=== PATIENT | male | born 1960 | race Caucasian/White ===

== ENCOUNTER 2024-08-04 22:43 | Emergency (ER) | payer MEDICARE, SELFPAY ==
[2024-08-04 22:59] VITALS: BP 132/65; PULSE 62; RESP 16; TEMP 36.9; O2SAT 98; BMI 25.8
--- NOTE | 2024-08-04 23:20 | ED_ITS ---
Discharge Plan Disposition Patient Disposition: Home, Self-Care Condition: Good Prescriptions Prescriptions: New doxycycline hyclate 100 mg capsule 100 mg PO BID 10 Days Qty: 20 0RF Referrals Follow up/Referrals: Provider,Referral, MD [Primary Care Provider] - See instructions Activity Restrictions/Add. Instructions Additional Instructions/Restrictions: You were evaluated in the ER and are appropriate for discharge at this time. Take the prescribed doxycycline as directed, do not skip doses, do not stop taking it early. Drink a full glass of water and stay sitting upright for 30 minutes after taking this medication. Keep the wound clean and dry. Shower/bathe like normal. Check yourself thoroughly for ticks anytime you have been outside in tall grass or in the [place]. Follow-up with your primary care doctor for reevaluation in a few days. Return to the ER with any new, worsening, or otherwise concerning symptoms. Clinical Impressions Clinical Impression: Cellulitis, Tick bite, Embedded tick of left shoulder Instructions Patient Instructions: DI for Skin Abscess Print Language Print Language: Serbian Discharge ED Provider: Javier Gillis General Adult HPI General Chief complaint: Skin/Abscess/Foreign Body Stated complaint: tick under your skin Time Seen by Provider: 08/04/24 23:00 Mode of Arrival: Ambulatory Source of Information: Patient Description of Symptoms (Recalled from ER Triage Doc. by RN): Pt to ED with c/o tick bite to left upper back History of Present Illness HPI narrative: 64-year-old male who reports being a type II diabetic on metformin presents to the ER with complaints of tick bite to the left shoulder. Patient reports he noticed it today, unsure how long the tick has been there. He states his tried to kill it with peroxide and also tried to pull it unsuccessfully. He states it is uncomfortable when touched. He states takes like to in bed in me . He states in the past he has had illness from take including fever but does not have fever associated with this tick bite. He believes he had another tick bite earlier this week above this 1. Other than redness at the site he reports no other rash, body aches, fevers, chills, or any other associated symptoms. Related Data Previous Rx's ?Medication ?Instructions ?Recorded doxycycline hyclate 100 mg capsule 100 mg PO BID 10 days #20 caps 08/04/24 Allergies Allergy/AdvReac Type Severity Reaction Status Date / Time cephalexin Allergy Mild Verified 08/04/24 23:18 [facility] Disclaimer: The information contained in this section may have been updated after the patient was seen, as this information can be updated by other users. Social History Smoking Status: Current some day smoker alcohol intake: never current occupational status: other Travel in the last 8 weeks: None ROS Obtained: Yes Systems reviewed as appropriate & no additional complaints except as documented per HPI Physical Exam General General appearance: alert and in no apparent distress Head Head exam: atraumatic and normocephalic Eye Eye exam: Present PERRL and EOMI ENT ENT exam: Present mucous membranes moist Neck Neck exam: Present normal inspection and full ROM Chest Chest inspection: Present symmetric chest wall rise Respiratory Respiratory exam: Absent respiratory distress or stridor Cardiovascular Cardiovascular exam: Present regular rate and normal rhythm Extremities Exam Extremities exam: Present full ROM Back Exam Back 1 view image: 2 1. embedded tick with 2cm surrounding erythema and induration 2. 3cm area of induration and erythema with small scab in the center. no tick. Neurological Exam Neurological exam: Present alert, oriented X3 and normal gait Psychiatric Psychiatric exam: Present normal affect and normal mood Skin Skin exam: Present warm and dry Medical Decision Making Medical Records Screening: Per USPSTF and CDC recommendations, given the prevalence of disease in our region, it is our hospital?s policy to screen for HIV and viral Hepatitis for all patients aged 18 and over and those with ongoing risk factors. Nba Inquiry Pt receiving controlled substance: No Vital Signs: 08/04/24 22:59 Temperature 98.5 F Temperature Source Oral Pulse Rate [Left Radial] 62 Respiratory Rate 16 Blood Pressure [Right Arm] 132/65 Blood Pressure Mean [Right Arm] 87 Blood Pressure Source [Right Arm] Automatic Cuff Blood Pressure Position [Right Arm] Sitting 02 Sat by Pulse Oximetry 98 Oxygen Delivery Method Room Air Orders (Tests/Meds): ED MEDICATIONS Discontinued Medications Generic Name Dose Route Start Last Admin Trade Name Freq PRN Reason Stop Dose Admin Doxycycline Hyclate 100 mg 08/04/24 23:17 Doxycycline Hycl 100 Mg Tablet PO 08/04/24 23:18 ONCE ONE Medical Decision Narrative: In summary, this 64-year-old male with comorbidities described in the HPI which may not be at goal therapy presents to the emergency department today with tick bite. On initial evaluation patient is hemodynamically stable, afebrile, overall well-appearing. Patient has very small, embedded tick on the left shoulder/back near the axilla as indicated in the back exam. Tick does not appear to be alive but is embedded. There is surrounding erythema and induration. There is also an area of erythema and induration just superior to this the patient believes was a tick bite earlier this week. No other rash or abnormalities identified on exam. Differential diagnosis includes but is not limited to tick bite, cellulitis, I considered abscess but there is no associated fluctuance, considered possibility of tickborne illness though I do not appreciate overt evidence of these at this time. I do not believe the patient requires labs or imaging. Tick was removed, see procedure note for details. Patient received doxycycline for treatment of associated cellulitis as well as any potential tickborne illness. He is being prescribed doxycycline for continued management since there is already evidence of soft tissue infection. Doxycycline also covers for tickborne illness so this should be adequate for treatment of these if present. Patient was given instructions on symptomatic management, wound care, antibiotic administration, follow up instructions, and return precautions for the emergency department. Patient indicated understanding and was discharged in stable condition. Procedures Risk/Benefits of Procedure(s) Were Explained: Yes (verbal consent provided by pt) Foreign Body Removal Time Out Performed: Yes Site: left Description of foreign body: insect (small embedded tick on L shoulder near axilla) Sedation/Analgesia: none Technique: removal with forceps (curved foreceps for initial removal, remaining piece was lifted out with tip of 18ga needle) Confirmed by:: direct visualization and palpation Complications: none Post-procedure exam: awake, alert Neurovascular: no change from pre-procedure (normal, intact, no complications, tolerated well) Critical Care Critical Care Time Critical Care Time: No
[2024-08-04] MEDS: DOXYCYCLINE HYCL 100 MG TABLET PO (23:32)
[2024-08-04 23:58] VITALS: BP 132/65; PULSE 62; RESP 16; TEMP 36.9; O2SAT 98
== END 2024-08-04 23:45 | disposition home or self-care (01) ==
PROVIDERS: Emergency Provider Student in an Organized Health Care Education/Training Program
DX: L03.114 Cellulitis of left upper limb (principal); S40.261A Insect bite (nonvenomous) of right shoulder, initial encounter; W57.XXXA Bitten or stung by nonvenomous insect and other nonvenomous arthropods, initial encounter
CPT/HCPCS: 99283

== ENCOUNTER 2024-09-09 14:44 | Emergency (ER) | payer MEDICARE, SELFPAY ==
[2024-09-09 15:02] VITALS: BP 105/51; PULSE 59; RESP 16; TEMP 36.8; O2SAT 97; BMI 25.8
--- OUTSIDE RECORDS SUMMARY | 2024-09-09 15:08 | XMS_ITS | Continuity of Care Document ---
Author Organization [facility] [place] Address [address] [place] [address] [facility] [place] [address] Support Name Relationship Address Phone Basim Bain MD Personal Relationship [facility] [place] [address] Nanci Lopez Personal Relationship Unknown Yumiko jon Care Teams Patient Care Team Team Status: Active Member Role Status Dates Nanci Lopez Primary Care Provider Active Visit Care Team Team Status: Inactive Member Role Status Dates Basim Bain MD Attending Provider Active Start: June 08, 2024 End: June 08, 2024 Nanci Lopez Primary Care Provider Active Start: June 08, 2024 End: June 08, 2024 Patient Care Team Team Status: Inactive Member Role Status Dates Basim Bain MD Attending Provider Active Start: August 31, 2024 End: August 31, 2024 Nanci Lopez Primary Care Provider Active Start: August 31, 2024 End: August 31, 2024 Chief Complaint and Reason for Visit Chief Complaint Admit Date followup June 08, 2024 10:40am Office visit August 31, 2024 9:31a m Reason for Visit Admit Date Peripheral polyneuropathy June 08, 2024 10:40am Peripheral polyneuropathy August 31, 2024 9:31am Allergies, Adverse Reactions, Alerts Allergen Type Severity Reaction Last Updated Verified Status cephalexin Allergy Unknown Rash August 31, 2024 10:15am Yes Active Social History Smoking Status Status Start Date End Date Date of Observa tion Ex-smoker (finding) April 20, 2024 3:33pm Observation Status Observation Response Date of Response substance use type does not use March 4:33pm alcohol intake never April 20, 2 024 4:33pm Sex Assigned At Male June Gender Identity Cisgender/Not transgender (findi ng) May 31, 2021 Cisgender/Not transgender (findi ng) May 31, 2021 Cisgender/Not transgender (findi ng) May 31, 2021 Cisgender/Not transgender (findi ng) May 31, 2021 Cisgender/Not transgender (findi ng) May 31, 2021 Family History Relationship Condition Age at Onset Recorded Date/T sumanth mother Diabetes mellitus Unknown father Malignant neoplasm of lung Unknown Problems Active Problems Medical Problem Onset Date Status Peripheral polyneuropathy Unknown Active Paresthesia of lower lip Unknown Active Vitamin B12 deficiency Unknown Active Hypoglycemia due to type 2 diabetes mellitus Unk nown Active History of CVA (cerebrovascular accident) Unknow n Active Hypertension Unknown Active Inactive/Resolved Problems Medical Problem Onset Date Status Acute kidney injury Unknown Resolved Acute dehydration Unknown Resolved Hyperosmolar hyperglycemic state (HHS) Unknown Resolved Paresthesia Unknown Resolved Shoulder pain Unknown Resolved Labile essential hypertension Unknown Re solved Bradycardia Unknown Resolved Transient ischemic attack Unknown Resolv ed Hyponatremia Unknown Resolved Near syncope Unknown Resolved Acute metabolic encephalopathy Unknown R esolved BMI 28.0-28.9,adult Unknown Resolved Skin nodule Unknown Resolved Acute ischemic stroke Unknown Resolved Transient cerebral ischemia Unknown Reso lved Cerebrovascular accident Unknown Resolve d Hyperkalemia Unknown Resolved Medications Medication Status Dose Units Route Directions Qty Days St art Date Stop Date End Date Instructions Adherence Hydrochloro thiazide 25 mg tablet Active 12.5 MG PO DAILY 2023 1:00am Blood-Gluco se Sensor (Dexcom G6 Sensor) device Active EACH MISC 2023 1:00am Blood-Gluco se Transmitter (Dexcom G6 Transmitter ) device Active EACH MISC As Directed 2023 1:00am Empaglifloz in (Empagliflo zin 10 Mg Tablet) 10 mg tablet Discont inued 10 MG PO Every Morning 2023 1:00am 2023 2:23a m Dextrose (Glucose Gel) 40 % gel Active 10 GM PO Q15M as needed for hypoglycemi a 112. 5 2023 1:00am until symptoms of low blood sugar are controlled Pantoprazol e (Protonix) 40 mg Tablet,Hermila yed Release (Dr/Ec) Discont inued 40 MG PO TWICE A DAY [facility] er 2019 1:00am Apr 2023 2:12a m Atorvastati n 40 mg Tablet Discont inued 40 MG PO once daily at bedtime 30 [facility] er 2019 1:00am Apr 2020 2:46p m Clopidogrel 75 mg Tablet Discont inued 75 MG PO DAILY 30 Dece er 2019 1:00am Apr 2020 2:46p m Clonidine Hcl 0.1 mg tablet Discont inued 0.1 MG PO DAILY as needed for SBP > 160 or DBP > 100 2023 1:00am Apr 2023 2:11a m Hydrochloro thiazide 25 mg tablet Discont inued 12.5 MG PO DAILY 2023 1:00am Apr 2023 9:59a m Amlodipine 2.5 mg tablet Active 2.5 MG PO DAILY 2023 1:00am On Hold: Hold until the top number of your blood pressure reaches 130 Amoxicillin 875 mg tablet Discont inued 875 MG PO EVERY 12 HOURS 2023 1:00am Apr 2023 9:59a m Albuterol Sulfate 90 mcg/actuati on HFA aerosol inhaler Discont inued 2 PUFF INH Q4H as needed for shortness of breath or wheezing 2023 1:00am Apr 2023 2:11a m Insulin Glargine 100 unit/mL Solution Active 28 UNIT SUBCUT DAILY 2023 1:00am Insulin Regular Human (Humulin R Regular U-100 Insuln) 100 unit/mL Solution Discont inued 7 UNIT SUBCUT THREE TIMES DAILY WITH MEALS 2023 1:00am Apr 2023 2:10a m Metformin 500 mg Tablet Active 500 MG PO TWICE DAILY WITH MEALS 2023 1:00am Ibuprofen 600 mg tablet Discont inued 600 MG PO TWICE A DAY as needed for pain, mild July 22, 2022 12:00a m Apr 2023 9:59a m Promethazin e 25 mg tablet Discont inued 25 MG PO Q6H as needed for nausea and vomiting July 22, 2022 12:00a m Aprua 2023 7:58a m Aspirin (Adult Aspirin Regimen) 81 mg tablet,hermila yed release (DR/EC) Active 81 MG PO DAILY 30 July 24, 2022 12:00a m Empaglifloz in (Jardiance) 10 mg tablet Discont inued 10 MG PO DAILY July 08, 2023 12:00a m Insulin Glargine (Lantus Solostar U-100 Insulin) 100 unit/mL (3 mL) insulin pen Discont inued UNIT SUBCUT July 08, 2023 12:00a m Fluticasone Propionate 50 mcg/actuati on spray,suspe nsion Discont inued SPRAY IN July 08, 2023 12:00a m Clonidine Hcl 0.1 mg tablet Discont inued 0.1 MG PO DAILY July 08, 2023 12:00a m Atorvastati n 40 mg tablet Discont inued 40 MG PO DAILY July 08, 2023 12:00a m Lisinopril 20 mg tablet Discont inued 20 MG PO TWICE A DAY July 08, 2023 12:00a m Pantoprazol e 40 mg tablet,hermila yed release (DR/EC) Discont inued 40 MG PO TWICE A DAY July 08, 2023 12:00a m Cyanocobala min (Vitamin B-12) 500 mcg tablet Discont inued 500 MCG PO DAILY 90 90 July 08, 2023 12:00a m Augus t 2023 12:10 pm Cyanocobala min (Vitamin B-12) 500 mcg tablet Active 500 MCG PO DAILY 90 90 December 09, 2023 12:10p m Pregabalin (Lyrica) 75 mg capsule Discont inued 75 MG PO TWICE A DAY 60 2024 1:00am August 23, 2024 12:06 pm Pregabalin (Lyrica) 75 mg capsule Discont inued 75 MG PO TWICE A DAY 60 August 23, 2024 12:05p m August 31, 2024 10:35 am Hydrochloro thiazide 12.5 mg capsule Discont inued 12.5 MG PO DAILY 2020 1:00am 2023 7:59a m Clopidogrel 75 mg tablet Discont inued 75 MG PO DAILY 2020 2:45pm Febru 2021 4:57p m Atorvastati n 40 mg tablet Discont inued 40 MG PO once daily at bedtime 2020 2:46pm Febru migdalia 2021 4:57p m Clopidogrel 75 mg tablet Discont inued 75 MG PO DAILY 30 2021 3:49pm savita 2021 4:01p m Atorvastati n 40 mg tablet Discont inued 40 MG PO once daily at bedtime savita 2021 3:49pm savita 2021 4:01p m Atorvastati n 40 mg tablet Discont inued 40 MG PO once daily at bedtime er 2021 4:01pm Febru migdalia 2022 3:32p m Clopidogrel 75 mg tablet Discont inued 75 MG PO DAILY er 2021 4:01pm Febru migdalia 2022 3:32p m Atorvastati n 40 mg tablet Discont inued 40 MG PO once daily at bedtime ry 2022 3:31pm ry 2023 2:11a m Clopidogrel 75 mg tablet Active 75 MG PO DAILY ry 2022 3:31pm Pregabalin (Lyrica) 75 mg capsule Active 75 MG PO TWICE A DAY August 31, 2024 10:35a m Atorvastati n 40 mg tablet Discont inued 40 MG PO once daily at bedtime 2021 4:56pm Septe er 2021 3:49p m Clopidogrel 75 mg tablet Discont inued 75 MG PO DAILY 2021 4:56pm er 2021 3:49p m Lisinopril 20 mg tablet Discont inued 20 MG PO TWICE A DAY 2021 1:00am 2023 9:59a m Hydrocodone -Acetaminop hen 10-325 mg tablet Discont inued 1 TAB PO EVERY 6 HOURS 2019 12:00a m Aprua 2023 8:47a m Takes scheduled. Not PRN. Aspirin 81 mg Tablet,Hermila yed Release (Dr/Ec) Discont inued 81 MG PO DAILY Novemb er 2019 12:00a m Aprua ry 2020 2:20p m Lisinopril 10 mg Tablet Discont inued 10 MG PO DAILY Novemb er 2019 12:00a m Aprua ry 2020 2:21p m Lisinopril 10 mg tablet Discont inued 20 MG PO DAILY y 2020 2:20pm Febru 2021 3:14p m Vital Signs Vital Reading Result Reference Range Collection Date/Time Heart Rate 59 /min 60-100 June 08, 2024 12:02pm Respiratory rate 18 /min -June 082024 12:02pm Oxygen saturation by Pulse oximetry 98 % 95-100 June 08, 2024 12:02pm BP Systolic 111 mm[Hg] 90-120 June 08, 2024 12:02pm BP Diastolic 72 mm[Hg] 60-80 June 08, 2024 12:02pm Height 68 [in_i] August 31, 2024 10:14am Weight 177.00 [lb_av] August 31 10:14am Body Temperature 98 [degF] 97.6-99.6 August 31, 2 025 10:14am Heart Rate 53 /min 60-100 August 31, 2024 10:14am Respiratory rate 18 /min -August 31, 2 025 10:14am Oxygen saturation by Pulse oximetry 97 % 95-100 August 31, 2024 10:14 am BP Systolic 117 mm[Hg] 90-120 August 31, 2024 10:14am BP Diastolic 71 mm[Hg] 60-80 August 31, 2024 10:14am BMI (Body Mass Index) 26.9 kg/m2 August 312024 10:34am Insurance Providers Guarantor Alan Thompson Address [address] [place] [address] [facility] [address] Contact Info. Home Phone: Payer Policy Id Subscriber's Name Subscriber Id Effectiv e Date Expiration Date [place] MEDICAID [id number] Alan Thompson [id number] MEDICARE A AND B [id number] Alan Thompson [id number] Encounters Encounter Location(s) Arrival/Admit Date Discharge /Depart Date Provider(s) Departed Physician/Prov ider Office Visit -[facility] June 08, 2024 11:40am June 08, 2024 12:23pm Chapo Bain MD Departed Physician/Prov ider Office Visit -[facility] August 31, 2024 9:31am August 31, 2024 10:38am Chapo Bain MD Recent Diagnosis Onset Date Admit Date Peripheral polyneuropathy Unknown Februa 2024 10:40am Peripheral polyneuropathy Unknown August 312024 9:31am Assessments Diagnosis Onset Date Resolution Status Admit Date Peripheral polyneuropathy acute June 08, 2024 10:40am Peripheral polyneuropathy acute August 31, 2024 9:31am Plan of Treatment Author Chapo Mendoza [facility] Auth[facility] June 08, 2024 12:46pm 63-year-old with burning aleksandar n in feet clinical features suggestive of peripheral polyneuropathy small fiber likely secondary diabetes History of vitamin B12 deficiency would get vitamin B12 level Would start the patient on Lyrica 75 mg p.o. b.i.d. Author Chapo Mendoza glenda [facility] Authored August 31, 2024 10:34 am Numbness persisting. 63-year -old with burning pain in feet clinical features suggestive of peripheral polyneuropathy small fiber likely secondary diabetes Would reorder vitamin B12 level Continue Lyrica 75 mg p.o. b.i.d. Future Tests Future scheduled test information is unavailable Pending Tests Test Name Ordered Date Scheduled Date Vitamin B12 August 31, 2024 10:35am 1 Months Future Visits Future appointment information is unavailable Referrals to Other Providers Referral information is unavailable Future Procedures Future procedure information is unavailable Future Medications Future medication information is unavailable Patient Instructions Patient instructions are unavailable History & Physical Note Author Chapo anderson [facility] Note Date/Time August 31, 2024 10:34 am [facility] [place] [facility] [place] [address] [address] Office Visit Report Signed Patient: Alan Thompson MR#: [id number] : 1960 Acct:[id number] Age/Sex: 64 / M ADM Date: 5 Loc: FK.NEURO Attending: Basim Bain M.D. 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 These include:: none of the above TB Risk Factors: None Have you Received a Covid-19 Vaccination: No Received Annual Flu Vaccine this year: No History of depression/psychiatric disorder: No Over the last 2 weeks, how often have you been bothered by any of the following problems? 1. Little interest or pleasure in doing things: not at all 2. Feeling down, depressed, or hopeless: not at all Total score: 0 If score is greater than 2 or hx of depression complete PHQ-9 Depression Screening Results: negative screen PHQ-9 (History of Depression or +Screen) 3. Trouble falling or staying asleep, or sleeping too much: not at all 4. Feeling tired or having little energy: not at all 5. Poor appetite or overeating: not at all 6. Feeling bad about yourself - or that you are a failure or have let yourself and your family down: not at all 7. Trouble concentrating on things, such as reading the newspaper or watching television: not at all 8. Moving or speaking so slowly that other people could have noticed? - Or the opposite - being so fidgety or restless that you have been moving around a lot more than usual: not at all 9. Thoughts that you would be better off or of hurting yourself in some way: not at all Total score: 0 If you checked off any problems, how difficult have these problems made it for you to do your work, take care of things at home, or get along with other people?: not difficult at all Source: Developed by Drs. Maco Neves, Tiana Maloney, Jose Chahal and colleagues, with an educational mimi from [employer]. HARK Intimate Violence Within the last year, have you been humiliated or emotionally abused in other ways by your partner or ex-partner: no Within the last year, have you been afraid of your partner or ex-partner: no Within the last year, have you been kicked, hit, slapped, or otherwise physically hurt by your partner or ex-partner: no Within the last year, have you been raped or forced to have any kind of sexual activity by your partner or ex-partner: no HARK total score: 0 ORT (Opioid Risk Tool) Age (Kenney box if 16-45): No History of Preadolescent Sexual Abuse: No Total Score: 0 Risk Category: Low Risk Urine Drug Screen Indicated: Low=Annually Moderate=Every 6 Months High=Every 3 Months ???Case NEWELL, Case [place]. Predicting aberrant behaviors in Opioid-treated patients: preliminary validation of the Opioid risk too. Pain Med. 2005; 6 (6) :432.??? Do you need a note to return to daycare/school/sports/work: No Admission History Have you been admitted to a hospital in past 30 days?: No Have you been discharged from a hospital in the past 7 days?: No Have you seen a Healthcare Provider in the past 7 days?: No Have you seen a Healthcare Provider in the past 48 hours?: No Nurse's Note Nurse's Note: pt is in office for follow up [facility] Medical History Vitamin B12 deficiency History of CVA (cerebrovascular accident) Transient ischemic attack Hypertension Surgical History History of hernia repair H/O left knee surgery History of cholecystectomy Family History Mother Diabetes Father Lung cancer Social History What is your current living situation: decline to answer Problems where you live: no known problems In the past 12 months, utilities in danger of being shut off: decline to answer In past 12 months, lack of transportation kept you from medical appts, meetings,work, or getting things needed for daily living: Decline to answer Financial difficulty paying for basics: not very hard Past 12 mos, fear food will run out before able to buy more: never true In past 12 months, food didn't last until money to buy more: never true Do you want help finding or keeping work or a job: I do not need or want help Do you want help with school or training: No Do you speak a language other than [place] at home?: No How many days of moderate to strenuous exercise, like a brisk walk, did you do in the last 7 days: 5 How many times in the past 12 months have you had 5 or more drinks in a day (males) or 4 or more drinks in a day (females)? One drink is 12 ounces of beer, 5 ounces of wine, or 1.5 ounces of 80-proof: Never How many times in the past 12 months have you used tobacco products (like cigarettes, cigars, snuff, chew, electronic cigarettes)?: Never How many times in the past year have you used prescription drugs for non-medical reasons?: Never How many times in the past year have you used illegal drugs?: Never Smoking risk assessment performed?: Yes How often does anyone, including family, friends and others, physically hurt you: never How often does anyone, including family, friends and others, insult or talk downto you: never How often does anyone, including family, friends and others, threaten you with harm: never How often does anyone, including family, friends and others, scream or curse at you: never Safety Score: 4 Do you need help with ADLs: I don't need any help Due to a physical, mental, or emotional condition, do you have difficulty doing errands alone such as visiting a doctor's office or shopping: No 1. Little interest or pleasure in doing things: not at all 2. Feeling down, depressed, or hopeless: not at all Mental Health Health-Related Social Need: 0 Feel stressed/tense/nervous/anxious/difficulty sleeping: not at all Life stressors: decline to answer Due to disability, difficulty making decisions: No Gender Identity: Male HPI HPI Comments Details: Patient was seen for follow-up. Patient states that numbness is persisting intermittently especially in the evenings. Exam Neuro General: patient alert, patient awake and patient oriented x3 Cranial Nerves: PERRL, EOM intact bilaterally, no nystagmus, facial strength normal, tongue midline, hearing normal, able to rotate head bilaterally, able toelevate shoulders bilaterally and symmetric palate elevation Cognition: normal cognition Speech: speech normal Gait: normal gait Motor: muscle tone normal throughout and strength 5/5 throughout Sensory Exam: no sensory deficits noted (Decreased for pinprick up to mid ramsey bilateral lower extremities) DTR's: Rt Triceps: 2+, Lt Triceps: 2+, Rt Biceps: 2+, Lt Biceps: 2+, Rt Brachioradialis: 2+, Lt Brachioradialis: 2+, Rt Patellar: 2+, Lt Patellar: 2+, Rt Ankle: 2+ and Lt Ankle: 2+ Plantar Reflexes: Downgoing: bilateral Coordination: [id number] test normal and rapid alternating movement LE normal Quality Reporting Adult ([facility] 138/2/22/69/61/64/165) Depression Screening Results: negative screen Body Mass Index: 26.9 Immunizations ([facility] 147, 117) Annual Influenza Vaccine: No Depression/Bipolar (159/160/161/169/177) Total score: 0 Assessment & Plan Assessment & Plan (1) Peripheral polyneuropathy: Status: Acute Plan: Numbness persisting. 63-year-old with burning pain in feet clinical features suggestive of peripheral polyneuropathy small fiber likely secondary diabetes Would reorder vitamin B12 level Continue Lyrica 75 mg p.o. b.i.d. Quality Reporting Body Mass Index: 26.9 Blood Pressure: 117/71 Systolic Blood Pressure: Systolic <130 Diastolic Blood Pressure: Diastolic <80 Depression Screening Results: negative screen MDM Medical Decision Making EKG Widget EKG Image: No Data to Display Coding Level of Care Level of Care: 80408 Low MDM or 20-29Min Additional Coding Details Diagnoses: Peripheral polyneuropathy G62.9 Additional Codes: Quality Reporting - Systolic Blood Pressure: Systolic <130 ([id number]) Quality Reporting - Diastolic Blood Pressure: Diastolic <80 ([id number]) Documented By: Chapo Bain MD [id number] Signed By: <Electronically signed by Chapo Bain MD> 08/31/24 1034
--- NOTE | 2024-09-09 15:27 | ED_ITS ---
Discharge Plan Disposition Patient Disposition: Home, Self-Care Prescriptions Prescriptions: New doxycycline hyclate 100 mg capsule 100 mg PO BID 5 Days Qty: 10 0RF No Action doxycycline hyclate 100 mg capsule 100 mg PO BID 10 Days Qty: 20 0RF Referrals Follow up/Referrals: Provider,Referral, MD [Primary Care Provider] - See instructions Activity Restrictions/Add. Instructions Additional Instructions/Restrictions: Call your family doctor to establish care for this visit to the emergency department and schedule follow-up within 48 hours to ensure improvement. If you have any worsening of your condition or any other concerning signs or symptoms, clued an joint swelling and redness, spreading rash, bull's-eye/target appearing rash, among others return to the emergency department or your primary care doctor for further evaluation. While taking doxycycline, limit sunlight exposure. It can cause severe sunburns even if you do not typically get sunburn. Be sure to wear hats, long sleeves, sunscreen if you are out in the sun for prolonged periods of time while taking doxycycline. Clinical Impressions Clinical Impression: Cellulitis, Tick bite Instructions Patient Instructions: DI for Skin Abscess Print Language Print Language: Citizen Of [place] Discharge ED Provider: Moshe Olivas General Adult HPI General Chief complaint: Skin/Abscess/Foreign Body Stated complaint: Tick bite-partial embedded in skin, lower abd Time Seen by Provider: 09/09/24 14:59 Mode of Arrival: Ambulatory Source of Information: Patient Description of Symptoms (Recalled from ER Triage Doc. by RN): Pt presents with a tick bite that happened last week. Pt states the area has become more reddened today. Pt denies any fever, chills, nausea or vomiting. History of Present Illness HPI narrative: Please note that above description of symptoms, in this electronic medical record under categorization of recalled from ER triage doctor by RN are reflective of an initial nursing assessment, however, is not reflective of my full history and physical exam that was personally taken and clarified. Consequentially, this preceding description of symptoms, which may include the patient's categorized chief complaint in the EMR, do not reflect my personal clinical impression, and the ultimate description of history of present illness and patient stated complaints should be deferred to this section of the note. Unless stated otherwise or congruent with this section of the note, additional signs, symptoms, or incongruence should be interpreted as inaccurate with my clinical impression. Related Data Previous Rx's ?Medication ?Instructions ?Recorded doxycycline hyclate 100 mg capsule 100 mg PO BID 10 days #20 caps 08/04/24 doxycycline hyclate 100 mg capsule 100 mg PO BID 5 days #10 caps 09/09/24 Allergies Allergy/AdvReac Type Severity Reaction Status Date / Time cephalexin Allergy Mild Verified 08/04/24 23:18 [facility] Disclaimer: The information contained in this section may have been updated after the patient was seen, as this information can be updated by other users. Social History (Updated 08/04/24 @ 23:34 by Prabhu Rehman MD) Smoking Status: Former smoker alcohol intake: never current occupational status: other Travel in the last 8 weeks?: None Have you lived/traveled outside [place] in past 30 days?: No Contact w/someone who lives/traveled outside [place] past 30 days?: No Exposure to someone with infectious disease in past 14 days?: No Do you have a fever (greater than 100.4 F or 38 C)?: No Have you tested positive for COVID-19?: No Exposed to someone with COVID-19 in past 14 days?: No Do you have a sore throat?: No Do you have a cough?: No Do you have any weakness?: No Do you have any diarrhea?: No Are you experiencing any unusual bleeding?: No Do you have any muscle aches/pain?: No Do you have any abdominal pain?: Yes Are you experiencing loss of taste or smell?: No ROS Obtained: Yes All systems reviewed & no additional complaints except as documented Physical Exam General General appearance: alert Head Head exam: atraumatic and normocephalic Eye Eye exam: Present normal appearance, PERRL and EOMI Neck Neck exam: Present normal inspection, full ROM and trachea midline Respiratory Respiratory exam: Absent respiratory distress, wheezes, stridor, accessory muscle use or prolonged expiratory phase Cardiovascular Cardiovascular exam: Present other (Pulses equal symmetric in upper and lower extremities) Abdominal Exam Abdominal exam: Present soft; Absent distention, tenderness or pulsatile mass Comment: Erythema with surrounding redness and warmth right lower quadrant overlying the pannus. Still appears to be the head of a tick Extremities Exam Extremities exam: Absent edema Neurological Exam Neurological exam: Present alert, oriented X3 and CN II-XII intact; Absent motor sensory deficit Skin Skin exam: Present warm and dry; Absent diaphoresis or erythema Medical Decision Making Medical Records Medical records reviewed: Yes I reviewed the patient's medical records. Screening: Per USPSTF and CDC recommendations, given the prevalence of disease in our region, it is our hospital?s policy to screen for HIV and viral Hepatitis for all patients aged 18 and over and those with ongoing risk factors. Nba Inquiry Pt receiving controlled substance: No Nba was queried for this patient: No Vital Signs: 09/09/24 15:02 Temperature 98.2 F Temperature Source Oral Pulse Rate [Left] 59 L Respiratory Rate 16 Blood Pressure [Right Arm] 105/51 L Blood Pressure Mean [Right Arm] 69 Blood Pressure Source [Right Arm] Automatic Cuff Blood Pressure Position [Right Arm] Sitting 02 Sat by Pulse Oximetry 97 Oxygen Delivery Method Room Air Orders (Tests/Meds): ORDERS Category Date Time Status HIV Combo Stat Lab 09/09/24 15:06 Ordered Hepatitis C Ab Qual. W/ RFX Stat Lab 09/09/24 15:06 Ordered Medical Decision Narrative: This is a 64-year-old male presenting with tick bite. He states that he pulled a tick off of them about a week ago after it was on him for just a few hours. It was still small and brown when he pulled it off. No fevers or chills, but states that he has redness and swelling on his lower abdomen now. Came in for further evaluation. No other associated symptoms. History obtained with patient. On arrival, very clinically well. Abdomen is soft, nontender, no ndistended. Overlying pannus on the right lower quadrant he does have a small area of scabbing, appears to be insect remnants as well as erythema spreading from this area and oblong, noncircumferential pattern. Warm, nontender. Differential includes cellulitis, among others. Because patient very clinically well, no fluctuance, low concern for abscess, to be treated for cellulitis. Doxycycline sent to pharmacy of choice. Close return precautions were discussed. Because patient at baseline without signs or symptoms of clinical decompensation, deemed appropriate for discharge. Results were relayed to patient[] who voiced understanding and were agreeable to outpatient management and follow up. I discussed my clinical impression with patient[] and answered all questions. At this time, the evidence for any other entities in the differential is insufficient to warrant any further testing or ED observation. This was explained as well. Advisory was given that persistent or worsening s ymptoms require further evaluation. I confirmed the understanding of this discussion. 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 Electronic mechanical maintenance instructor of t spoken language may permit errors. Although I have reviewed the note, some errors may still exist. Critical Care Critical Care Time Critical Care Time: No
[2024-09-09 15:39] VITALS: BP 159/85; PULSE 80; RESP 20; TEMP 36.6; O2SAT 98
== END 2024-09-09 15:41 | disposition home or self-care (01) ==
PROVIDERS: Emergency Provider Emergency Medicine
DX: S30.861A Insect bite (nonvenomous) of abdominal wall, initial encounter (principal); W57.XXXA Bitten or stung by nonvenomous insect and other nonvenomous arthropods, initial encounter
CPT/HCPCS: 99283